=== PATIENT | female | born 1950 | race Two or more races ===

== ENCOUNTER 2024-12-21 11:52 | Inpatient (IN) | payer OTHER ==
[~2024-12-21] VITALS: Ht 154.9 cm; Wt 93.5 kg
[2024-12-21] VITALS (13 sets, daily range): BP systolic 93–134; BP diastolic 31–59; PULSE 101–119; RESP 10–29; TEMP 98; O2SAT 80–100
[~2024-12-21 11:52] MED LIST: ALBUAER3 IN; AMLO1TAB22 PO; ATOR20TA PO; CARB25TA79 PO; DONE1TAB88 PO; GABA-1250 PO; GLIM4TAB42 PO; HYDR25TA5 GT; LEVO75TA6 PO; OMEP-448 PO; PRIM50TA5 PO
[2024-12-21] MEDS ORDERED: KETAMINE 50mg/ML 1ml syringe ONE (12:04)
[2024-12-21] MEDS ORDERED: PROPOFOL 10 MG/ML 20 ML IV ONE (12:04)
[2024-12-21] MEDS ORDERED: LIDOCAINE 1% INJ PF 5ML AMP ONE (12:04)
[2024-12-21] MEDS ORDERED: ONDANSETRON HCL 4 MG/2 ML VIAL ONE (12:04)
[2024-12-21] MEDS ORDERED: HYDROmorphone HCL 2 MG/ML VL/or syr ONE (12:04)
[2024-12-21] MEDS ORDERED: MIDAZOLAM HCL 2MG/2ML 2ml VIAL (1mg/ml) ONE (12:04)
[2024-12-21] MEDS ORDERED: fentaNYL CITRATE 5 ML ONE (12:04)
[2024-12-21] MEDS ORDERED: ROCURONIUM 10MG/ML 10ML VIAL IV ONE (12:04)
[2024-12-21] MEDS ORDERED: fentaNYL CITRATE 100 MCG/2 ML VL ONE ×2 (12:04→16:48)
[2024-12-21] MEDS ORDERED: DexAMETHasone SOD PHOS 10MG/1ML VIAL INJ ONE (12:04)
[2024-12-21] MEDS: ceFAZolin 2 GM/D5W50ml 50 ML IV ONE (12:30)
[2024-12-21] MEDS: levoFLOXacin 500MG 100 ML IV ONE (14:17)
[2024-12-21] MEDS: TRANEXAMIC ACID 20 ML ONE (14:20)
[2024-12-21 14:26] LABS: Base Excess 7.6 mmol/L (-2.0-3.0)
--- NOTE | 2024-12-21 14:43 | DVH ---
CHEST RADIOGRAPH Indication: SURGERY Technique: Single frontal view of the chest was obtained COMPARISON: None FINDINGS: Lines and Tubes: None Lungs: Clear Pleura: No effusion. No pneumothorax. Cardiomediastinal contours: Unremarkable Bones: Unremarkable IMPRESSION: No acute disease.
[2024-12-21] MEDS ORDERED: ePHEDrine SULFATE 50 MG/ML AMP ONE (15:09)
[2024-12-21] MEDS ORDERED: MORPHINE SULFATE INJ 2 MG/ml SYRG IV PRN (15:45)
[2024-12-21] MEDS ORDERED: NITROGLYCERIN 0.4 MG SL TAB SL PRN (15:45)
[2024-12-21] MEDS ORDERED: ONDANSETRON HCL 4 MG/2 ML VIAL IV PRN (15:45)
[2024-12-21] MEDS: D5W/SOD CHLO 0.9% 1,000 ML IV SCH (15:45)
[2024-12-21] MEDS ORDERED: ACETAMINOPHEN 325 MG TAB PO PRN (15:45)
[2024-12-21] MEDS: LIDOCAINE W/ EPINEPHRINE 1% 20ML VIAL ONE (16:10)
--- NOTE | 2024-12-21 17:28 | DVHOP2 ---
Operative Report - 2 Report Details Date: 12/21/24 Preop Diagnosis: lumbar spondylolisthesis and spinal stenosis causing incapacitating low back pain and neurogenic claudication Postop Diagnosis: same as pre op Surgeon: Vinicius Jessica MD Customer Counter Associate: Tamy Ames NP Anesthesiologist: Arlen Anesthesia: General Consent: The patient was informed of the risks and benefits of the procedure. These include but are not limited to complications of anesthesia, postoperative infection, incomplete relief of symptoms, recurrence of symptoms, damage to blood vessels, nerves and tendons, deep venous thrombosis, pulmonary embolism and possible need for repeat surgery in the future. Name of Procedure Performed see detailed note Procedure Details Procedure Details: Pre-op Diagnosis: Lumbar Degenerative Disk Disease and Lumbar Spinal Stenosis with L4/5 and L5/S1 spondylolisthesis causing Incapacitating back pain, radiculopathy and progressive neurologic deficit Post-op Diagnosis: Lumbar Degenerative Disk Disease and Lumbar Spinal Stenosis with L4/5 and L5/S1 spondylolisthesis causing Incapacitating back pain, radiculopathy and progressive neurologic deficit Procedure: Lumbar 5 laminectomy with Lumbar 5 foraminotomies and facetectomies to decompress central canal and Lumbar 5 nerve roots Lumbar 4 laminectomy with Lumbar 4 foraminotomies and facetectomies to decompress central canal and Lumbar 4 nerve roots Bilateral Sacral 1 Laminotomies/Foraminotomies/Facetectomies to decompress the central canal and Bilateral Sacral 1 nerve Roots Lumbar 4 to sacral 1 posterior spinal inter transverse fusion with bone graft Lumbar 4 to sacral 1 posterior spinal instrumentation with pedicle screws Local Bone Autograft For Fusion Allograft Bone to augment Fusion Use of Demineralized Bone Matrix to Augment Fusion Microscope For Microdissection Surgeon: Vinicius Jessica MD Assist: ROBERTH Perez Anesthesia: General Fluids and EBL: See anesthesia note Patient was seen in the Pre Anesthesia Care Unit (PACU) and the operative site was initialed by me. All questions were answered to the patients satisfaction and chart reviewed. The patient was taken to the operative room where pre- operative antibiotics were given 30 minutes prior to incision. General anesthesia was induced and neuro-monitoring leads placed. Kirkpatrick catheter was placed. The patient was turned prone onto the [facility] spinal table. While positioning, I made sure that the belly was free to allow proper expansion of the lungs. The hips were extended and all bony prominences padded. The shoulders were abducted 80 degree and the elbows flexed 100 degrees with no tension on the brachial plexus. I check the foot arterial pulses and they were palpable. The patient was prepped and draped and time out was taken at this time per usual protocol. At this time, the C-arm fluoroscope was brought in and was used to gray the incision borders proximally and distally. Using a Number 10 Blade, an incision was made extending it proximally and distally per C arm gray from the posterior spinous process of lumbar 4 to sacral 1 , down to the lumbo- dorsal fascia. All bleeding was controlled with electrocautery. Self-retaining retractors were placed. Electrocautery was then used to take down the lumbo- dorsal fascia, to free the muscle off the bone bilaterally. A Azul retractor was placed over the posterior spinous process proximally and a lateral C-arm fl uoroscope image was taken to insure we were at the correct level. Next, using bovie electro cautery, The deep fascia laterally to the facet joints was removed to expose the transverse processes of lumbar 4,5 and sacral 1 while taking care to avoid injuring the facet capsule at the proximal end of the incision. Next, the microscope was bought in for visualization and using a Luxell rongeur, the posterior spinous process of lumbar 4,5 and sacral 1 were removed and the bone was saved for use as local autograft. I used alternating Kerison 2 mm and 3 mm rongeurs to perform central laminectomies lumbar 5 and 4 and bilateral laminotomies/foramintomies of sacral. to decompress the central canal. Next using alternating Kerison 2mm and 3 mm rongeurs, the superior articular facets of lumbar 4,5, and sacral 1 were removed bilaterally to decompress the lateral recess (facetectomies) and then extended proximally to decompress the foramen bilaterally (foraminotomies). I used a ball tipped nerve probed to insure that the respective nerve roots were able to be mobilized 5mm in each direction were unimpeded in the lateral recess and foramen. Next I carefully inspected the dura to make sure no durotomy was visible and it was not. I covered the exposed dura with gelfoam soaked in thrombin and the microscope was wheeled away from the operative filed. The C-arm fluoroscope was brought in and perfect AP views of the lumbar 4, 5 and sacral 1 pedicles were obtained. I placed bilateral pedicle screws at these levels by: using a Lenke awl to make a airline pilot/first officer hole, then a ball tip robe to make sure there was no pedicle breach, then a tap to prepare the track and a 6.5 mm diameter and 45mm for lumbar 4, 5 and for sacral 1 a 35mm length pedicle screw was placed bilaterally. This step to place bilateral pedicle screws was repeated up to the lumbar 4, 5 and sacral 1 level. Next, the c-arm fluoroscope took an AP and lateral x-ray to ensure proper placement of the pedicle screws. Next, the neuro-stimulation probe was placed over the tip of each screw and each screw stimulated only after a current greater than 10 mA was delivered to the screw. Next , I took a Midas Ravindra Drill to decorticate the transverse process which were exposed and local bone graft, Bacterin allograft bone substitute and Demineralized bone matrix were placed along the inter transverse process intervals bilaterally (the fusion bed). Next a curved melinda sized to fit the pedicle screw interval was placed and secured to each pedicle screw using set screws, The set screws were tightened using a torque screwdriver (set to 10 N*M torque) to secure the melinda to the pedicle screws bilaterally. Final AP and lateral C arm fluoroscopic films were taken at this time. Next a 10 [place] diameter Hemovac drain was laced deep to the lumbo- dorsal fascia. The lumbo-dorsal fascia was closed with interrupted 0-Vicry sutures. The subcutaneous tissue was closed with interrupted 2-0 Vicryl sutures. The skin was closed with 2-0 running nylon subcuticular suture. Sterile dressings were place. The pt. was turned supine onto the stretcher, extubated and taken to the recovery room in stable condition. CPT code: [id number] Condition Stable Disposition Still a Patient VINICIUS JESSICA MD December 21, 2024 17:28
--- NOTE | 2024-12-21 17:56 | DVHHP2 ---
Admitting Diagnosis: LUMBAR SPINAL STENOSIS WITH SPONDYLOLISTHESIS AT L4/5 AND L5/S1 History of Present Illness History Source: Patient, Family Home Meds Reported Medications Albuterol Sulfate (VENTOLIN MDI) 90 Mcg Ih, 90 MCG IN PRN, INH 12/17/24 Gabapentin (Gabapentin) 300 Mg Cap, 300 MG PO BID, CAP 12/17/24 Donepezil Hydrochloride (DONEPEZIL HCL) Unknown Strength Tab, PO, TAB 12/17/24 Atorvastatin Calcium (Lipitor) 20 Mg Tab, 20 MG PO HS, TAB 12/17/24 Glimepiride (Glimepiride) 4 Mg Tab, 4 MG PO, TAB 12/17/24 Hctz (Hydrochlorothiazide) 25 Mg Tab, 25 MG GT DAILY, TAB 12/17/24 Levothyroxine Sodium (Levothyroxine Sodium) 75 Mcg Tab, 75 MCG PO QAM, TAB 12/17/24 Primidone (MYSOLINE TABLET) 50 Mg Tb, 50 MG PO DAILY, TAB 12/17/24 Carbidopa-Levodopa (Carbidopa/Levodopa Odt 25-100 mg) 1 Tab Tab, 1 TAB PO, TAB 12/17/24 Amlodipine Besylate (Amlodipine Besylate) 5 Mg Tab, 5 MG PO DAILY, TAB 12/17/24 Omeprazole (Omeprazole Dr) 40 Mg Cap, 40 MG PO DAILY, CAP 12/17/24 Timing/Duration of Back Pain: Getting worse Quality of Back Pain: Aching, Burning, Cramping Back Pain Location: Lumbar spine Back Pain Radiation: Lower legs Method of Injury/Prior Factors: Unknown Modifying Factors for Back Junie: Movement Associated Symptoms of Back Pa: Muscle spasms, Tingling in legs, Tingling in feet, Sensory loss, Motor loss Review of Systems Constitutional: No symptom reported Ears, Nose, & Throat: No symptom reported Eyes: No symptom reported Pulmonary/Respiratory: No symptom reported Cardiovascular: No symptom reported Gastrointestinal: No symptom reported Genitourinary: No symptom reported Musculoskeletal: No symptom reported, Leg pain, Foot pain, Muscle pain, Muscle stiffness Skin: No symptom reported Psychiatric: No symptom reported Endocrine: No symptom reported Hemotologic/Lymphatic: No symptom reported H&P Exam Vital Signs Vital Signs Date Time Temp Pulse Resp B/P (MAP) Pulse Ox O2 Delivery O2 Flow Rate FiO2 12/21/24 12:25 97.8 72 18 126/64 84 97 97.8 General Appeara: Well developed, Well nourished, Normal Appearance Head Exam: Normal inspection Neck Exam: Normal inspection Eye Exam: bilateral eye Normal inspection, bilateral eye PERRL, bilateral eye EOMI Ear Exam: bilateral ear Auricle normal, bilateral ear Canal normal, bilateral ear TM normal Nasal Exam: Normal inspection Mouth: Normal Inspection Pulmonary/Respiratory: Normal inspection, Normal breath sounds, Chest non- tender, Lungs clear Cardiovascular/Chest: Edema Abdominal Exam: Normal bowel sounds, Soft, No tenderness, No hepatospenomegaly, No masses Rectal Exam: Deferred Back Exam: Decreased range of motion, Muscle spasm Pelvic Exam: Not done Male Genital Exam: Not done Elbow/Forearm Exam: Normal inspection, Non-tender, Normal ROM Wrist Exam: Normal inspection, Non-tender, Normal ROM Hand Exam: Normal inspection, Non-tender, Normal ROM Hip exam: Normal inspection, Non-tender, Normal range of motion Legs: bilateral leg non-tender, bilateral leg normal inspection, bilateral leg normal range of motion, bilateral leg no evidence of injury Knees: bilateral knee non-tender, bilateral knee normal inspection, bilateral knee normal range of motion, bilateral knee no evidence of injury Ankle Exam: bilateral ankle Normal inspection, bilateral ankle Non-tender, bilateral ankle Normal range of motion, bilateral ankle No evidence of injury Foot: bilateral foot non-tender, bilateral foot normal inspection, bilateral foot normal range of motion, bilateral foot no evidence of injury Labs/Xrays Labs Test 12/21/24 14:19 12/21/24 12:58 Range/Units Blood Gas Specimen Type Arterial Blood Gas Sample Site Right radial Blood Gas Patient Temperature 37.0 Arterial Blood Date Drawn [id number] Arterial Blood pH 7.507 H 7.350-7.450 Arterial Blood Partial Pressure CO2 40.4 32.0-45.0 mmHg Arterial Blood Partial Pressure O2 65.7 L 83.0-108.0 mmHg Arterial Blood HCO3 31.3 H 21.0-28.0 mmol/L Arterial Blood Oxygen Saturation 93.8 L 94.0-98.0 % Arterial Blood Base Excess 7.6 H -2.0-3.0 mmol/L Arterial Blood Oxyhemoglobin 93.0 L 94.0-98.0 % Arterial Blood Carboxyhemoglobin 0.6 0.5-1.5 % Arterial Blood Methemoglobin 0.3 0.0-1.5 % Natan Test Yes Blood Gas Total Hemoglobin 11.40 L 12.0-16.0 g/dL Blood Gas Modality Room air FiO2 % 21.0 POC Glucose 116 H 70-106 mg/dl Assessment/Plan Primary Diagnosis lumbar randy stenosis with spondylolisthesis at L4/5 and L5/S1 causing severe neurogenic claudication 2' Diagnosis/Co-morbidities admit for elective spine surgery Plan discussed with: Patient YONY TAYLOR MD December 21, 2024 17:56
[2024-12-21] MEDS ORDERED: SUGAMMADEX 200mg/2ml Vial (100MG/ML) IV ONE (18:02)
[2024-12-21] MEDS: ACETAMINOPHEN IV 100 ML IV ONE (18:27)
[2024-12-21] MEDS: ACETAMINOPHEN IV 1000 MG/100ML (10MG/ML) IV PRN (18:30)
[2024-12-21] MEDS: ONDANSETRON HCL 4 MG/2 ML VIAL IV ONE (18:30)
[2024-12-21 19:01] LABS: Base Excess 1.3 mmol/L (-2.0-3.0)
--- NOTE | 2024-12-21 19:16 | DVH ---
C-ARM FLUOROSCOPY: PROCEDURE: Spinal decompression FLUOROSCOPY TIME: 11.5 seconds DAP: 44.8 mgy FINDINGS: Spot intraoperative C arm radiographs demonstrating spinal decompression. IMPRESSION: Please refer to surgical report for detailed findings.
[2024-12-21] MEDS: HYDROmorphone HCL 2 MG/ML VL/or syr IV PRN (19:38)
[2024-12-21] MEDS: HYDROmorphone HCL 2 MG/ML VL/or syr ONE (19:57)
[2024-12-21 21:34] LABS: Base Excess -1.4 mmol/L (-2.0-3.0)
[2024-12-21] MEDS: DOCUSATE SOD 100 MG CAP PO SCH (22:00)
[2024-12-21] MEDS: CYCLOBENZAPRINE HCL 10 MG TAB PO SCH (22:00)
[2024-12-21] MEDS: ceFAZolin 1GM/50ML 50 ML IV SCH (22:35)
[2024-12-22] VITALS (105 sets, daily range): BP systolic 49–232; BP diastolic 31–226; PULSE 78–136; RESP 9–39; TEMP 97.8–99.6; O2SAT 93–100
[2024-12-22 00:17] LABS: Base Excess -3.1 mmol/L (-2.0-3.0)
[2024-12-22] MEDS: IPRATROPIUM BROM 0.5 MG/2.5ML INH SOL NEB SCH (00:25)
[2024-12-22] MEDS: MORPHINE SULFATE INJ 2 MG/ml SYRG IV PRN (00:37)
--- NOTE | 2024-12-22 01:05 | DVHINCON2 ---
JASE TOVAR [facility] 12/22/24 0105: Date of service: December 22, [address] Jessica Reason for Consultation Medical Management History of Present Illness Mrs. Ria Schaffer is a 74 yo female with known history of dementia, COPD, on 2L NC supplemental home 0xygen, DM who presents for an elective surgical lumbar sinal stenosis with spondylolisthesis at L4/5 and L5/S1 causing severe ne urogenic claudication by Dr. Jessica. Patient was admitted to [facility] consult for medical management. Patient is on BIPAP. Past Medical History Dementia, COPD, DM Past Surgical History Hysterectomy, Hernia Repair, cholecystectomy, tonsillectomy Family History none contributory Social History none contributory Allergies: Coded Allergies: NO KNOWN ALLERGIES (Unverified , 09/29/11) Home Meds Reported Medications Albuterol Sulfate (VENTOLIN MDI) 90 Mcg Ih, 90 MCG IN PRN, INH 12/17/24 Gabapentin (Gabapentin) 300 Mg Cap, 300 MG PO BID, CAP 12/17/24 Donepezil Hydrochloride (DONEPEZIL HCL) Unknown Strength Tab, PO, TAB 12/17/24 Atorvastatin Calcium (Lipitor) 20 Mg Tab, 20 MG PO HS, TAB 12/17/24 Glimepiride (Glimepiride) 4 Mg Tab, 4 MG PO, TAB 12/17/24 Hctz (Hydrochlorothiazide) 25 Mg Tab, 25 MG GT DAILY, TAB 12/17/24 Levothyroxine Sodium (Levothyroxine Sodium) 75 Mcg Tab, 75 MCG PO QAM, TAB 12/17/24 Primidone (MYSOLINE TABLET) 50 Mg Tb, 50 MG PO DAILY, TAB 12/17/24 Carbidopa-Levodopa (Carbidopa/Levodopa Odt 25-100 mg) 1 Tab Tab, 1 TAB PO, TAB 12/17/24 Amlodipine Besylate (Amlodipine Besylate) 5 Mg Tab, 5 MG PO DAILY, TAB 12/17/24 Omeprazole (Omeprazole Dr) 40 Mg Cap, 40 MG PO DAILY, CAP 12/17/24 Current Medications Current Medications Medications (Trade) Dose Ordered Sig/Mejia Route PRN Reason Start Time Stop Time Status Last Admin Dextrose/Sodium Chloride 1,000 ml @ 100 mls/hr Q10H IV 12/21/24 15:45 12/21/24 22:27 Ondansetron HCl (Zofran) 4 mg Q4HP PRN IV NAUSEA / VOMITING 12/21/24 15:45 Acetaminophen (Tylenol Tablet) 650 mg Q6HP PRN PO MILD PAIN (1-3 PAIN SCALE) 12/21/24 15:45 Acetaminophen/ Hydrocodone Bitart ([place] 10/325MG Tab) 1 tab Q6HP PRN PO MODERATE PAIN (4-6 PAIN SCALE) 12/21/24 15:45 Morphine Sulfate 1 mg Q4HP PRN IV SEVERE PAIN (7-10 PAIN SCALE) 12/21/24 15:45 12/22/24 00:37 Cyclobenzaprine HCl (Flexeril Tablet) 10 mg TID PO 12/21/24 22:00 Docusate Sodium (Colace Capsule) 100 mg BID PO 12/21/24 22:00 Cefazolin Sodium 50 ml @ 100 mls/hr Q8HR IV 12/21/24 22:00 12/23/24 14:29 12/21/24 22:35 Nitroglycerin (Ntrostat Sublingual) 0.4 mg Q5MINP PRN SL FOR CHEST PAIN 12/21/24 15:45 Morphine Sulfate 2 mg Q30M PRN IV FOR CHEST PAIN 12/21/24 15:45 Acetaminophen (Ofirmev) 1,000 mg [id number] PRN IV PAIN SCALE 1-3 OR TEMP>100.4 12/21/24 18:30 12/21/24 19:53 DC 12/21/24 18:30 Hydromorphone HCl (Dilaudid Injection) 0.25 mg [id number] PRN IV PAIN SCALE 7 THRU 10 12/21/24 19:30 12/21/24 20:20 Ipratropium [place] (Atrovent Medneb) 0.5 mg Q6HR NEB 12/22/24 00:00 12/22/24 00:25 Review of Systems unable to do ROS patient dementia Vital Signs Vital Signs Date Time Temp Pulse Resp B/P (MAP) Pulse Ox O2 Delivery O2 Flow Rate FiO2 12/22/24 00:37 111 28 139/53 12/22/24 00:30 98 Facial BiPAP Mask 40 12/22/24 00:00 97.8 97.8 12/21/24 17:56 9.0 Physical Exam HEENT pupils are reactive Neck is supple CV is S1-S2 sinus tachycardia Respiratory diminished breath sounds bases, on BIPAP fi02 40% GI positive no edema [employer]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9 L 94.0-98.0 % Arterial Blood Carboxyhemoglobin 0.1 L 0.5-1.5 % Arterial Blood Methemoglobin 0.7 0.0-1.5 % Natan Test N/a Blood Gas Total Hemoglobin 9.60 L 12.0-16.0 g/dL Blood Gas Modality Mask - bipap FiO2 % 40.0 Blood Gas EPAP 5 Blood Gas IPAP 16 Magnesium Level 1.8 1.6-2.6 mg/dL Blood Gas Critical Value Read Back Yes Blood Gas Notified Whom Do shaan pan Blood Gas Notified Time [id number] Blood Gas Notified By Rt kwesi mata Blood Gas Liter Flow 8.00 Test 12/21/24 12:58 Range/Units POC Glucose 116 H 70-106 mg/dl Assessment This is a 74 yo female with known history of dementia, COPD with supplemental home oxygen use of 2L NC, DM, who was admitted by spinal surgeon for lumbar spinal stenosis with spondylolisthesis at L4/5 and L5/S1 causing severe neurogenic claudication, elective surgery of spinal decompression and fusion. Patient was admitted to [facility]. Patient with hypercapnia repeat ABG, on Bipap , Pulmonology consultation. Problems(with codes): (1) Spinal stenosis Plan/Recommendation Monitor CBC, BMP, Analgesics as needed. IV fluids , empiric IV abx. DVT ppx SCD's , GI ppx rest of hospital course per admitting Provider and other consults. Plan discussed with: Other MODESTO DELANEY MD 12/22/24 1358: Allergies: Coded Allergies: NO KNOWN ALLERGIES (Unverified , 09/29/11) Home Meds Reported Medications Albuterol Sulfate (VENTOLIN MDI) 90 Mcg Ih, 90 MCG IN PRN, INH 12/17/24 Gabapentin (Gabapentin) 300 Mg Cap, 300 MG PO BID, CAP 12/17/24 Donepezil Hydrochloride (DONEPEZIL HCL) Unknown Strength Tab, PO, TAB 12/17/24 Atorvastatin Calcium (Lipitor) 20 Mg Tab, 20 MG PO HS, TAB 12/17/24 Glimepiride (Glimepiride) 4 Mg Tab, 4 MG PO, TAB 12/17/24 Hctz (Hydrochlorothiazide) 25 Mg Tab, 25 MG GT DAILY, TAB 12/17/24 Levothyroxine Sodium (Levothyroxine Sodium) 75 Mcg Tab, 75 MCG PO QAM, TAB 12/17/24 Primidone (MYSOLINE TABLET) 50 Mg Tb, 50 MG PO DAILY, TAB 12/17/24 Carbidopa-Levodopa (Carbidopa/Levodopa Odt 25-100 mg) 1 Tab Tab, 1 TAB PO, TAB 12/17/24 Amlodipine Besylate (Amlodipine Besylate) 5 Mg Tab, 5 MG PO DAILY, TAB 12/17/24 Omeprazole (Omeprazole Dr) 40 Mg Cap, 40 MG PO DAILY, CAP 12/17/24 Additional Comments Additional Comments Additional Comments 74-year-old female with a known history of chronic respiratory failure on home O2 at 2 L, COPD, hypothyroidism, Parkinson's disease presented to the hospital for elective surgery. Patient is currently off of BiPAP. 1. Acute hypoxic respiratory failure currently off of BiPAP, on baseline at 2 L by continuous nasal cannula 2. Lumbar spine stenosis status post L4-5 S1 surgery postop day one 3. Parkinson's disease 4. Chronic respiratory failure on home O2 5. Hypertension 6. Diabetes mellitus type 2 7. GERD 8. Morbid obesity class I -O2 supplementation, med nebs, DVT GI prophylaxis -repeat ABG, downgraded to telemetry. JASE TOVAR December 22, 2024 01:05 MODESTO DELANEY MD December 22, 2024 13:58
[2024-12-22 04:39] LABS: Urine Bacteria None Seen /hpf (None Seen)
[2024-12-22 05:00] LABS: Urine Blood Negative /uL (Negative); Urine Clarity Clear (Clear); Urine Color Light-Yellow (Yellow); Urine Protein, UAD Negative (Negative); Urine Specific Gravity 1.013 (1.001-1.035); Urine Squamous Epithelial Cell None Seen /hpf (<5); Urine Urobilinogen Normal (Negative); Urine WBC 2 /HPF (0-5)
[2024-12-22 05:05] LABS: Basophils # (auto) 0 10 ^3/uL (0-0.2); Basophils % (auto) 0.1 % (0.0-2.0); Eosinophils # (auto) 0 10 ^3/uL (0-0.8); Hematocrit 28.4 % (36.0-46.0); Lymphocytes # (auto) 0.5 10 ^3/uL (0.4-5.4); Red Cell Distribution Width 14.8 % (11.8-14.3)
[2024-12-22 05:09] LABS: Hemoglobin 8.8 g/dL (12.2-16.2); Lymphocytes % (auto) 4.4 % (10.0-50.0); Mean Corpuscular Hemoglobin 25.7 pg (28.0-32.0); Mean Corpuscular Hgb Conc. 31.1 g/dL (32.0-36.0); Mean Corpuscular Volume 82.7 fL (80.0-100.0); Monocytes # (auto) 1.1 10 ^3/uL (0-1.3); Neutrophils # (auto) 9.5 10 ^3/uL (1.6-8.6); Neutrophils % (auto) 85.5 % (37.0-80.0); Platelet Count (auto) 260 10^3/uL (140-450); Red Blood Cells 3.44 10^6/uL (4.0-5.20); White Blood Cell 11.1 10^3/uL (4.4-10.8)
[2024-12-22 05:09] LABS: Anion Gap 10 (5-15); Carbon Dioxide 30 mmol/L (20-31); Chloride 100 mmol/L (98-107); Potassium 4.3 mmol/L (3.5-5.1); Sodium 140 mmol/L (136-145)
[2024-12-22 05:15] LABS: BUN/Creatinine Ratio 14.9 (10.0-20.0); Blood Urea Nitrogen 14 mg/dL (9-23); INR 1.06 (0.9-1.15); Prothrombin Time 11.2 sec (9.3-11.8)
[2024-12-22 05:52] LABS: Glucose 206 mg/dL (74-106)
[2024-12-22 08:07] LABS: Base Excess 2.1 mmol/L (-2.0-3.0)
--- NOTE | 2024-12-22 08:43 | DVH ---
EXAM: XR Chest, 1 View CLINICAL INDICATION: ABNORMAL BLOOD GAS TECHNIQUE: Frontal view of the chest. COMPARISON: XY CHEST XRAY 1 VIEW on DOS: 12/21/24 FINDINGS: LUNGS AND PLEURAL SPACES: See below. HEART: Cardiomegaly with mild congestion. MEDIASTINUM: Unremarkable. Normal mediastinal contour. BONES/JOINTS: Unremarkable. No acute fracture. OTHER FINDINGS: . IMPRESSION: Cardiomegaly with mild congestion.
[2024-12-22] MEDS: FAMOTIDINE (10MG/ML) 2ML VL IV SCH (10:42)
[2024-12-22] MEDS: HYDROcodone-ACET 10/325MG TAB PO PRN (10:43)
--- NOTE | 2024-12-22 12:15 | POSTOP ---
Post-Operative Note Post-Operative Note Preop Diagnosis Lumbar Degenerative Disk Disease and Lumbar Spinal Stenosis with L4/5 and L5/S1 spondylolisthesis causing Incapacitating back pain, radiculopathy and pro gressive neurologic deficit Postop Diagnosis: same as pre op Operation performed Lumbar 5 laminectomy with Lumbar 5 foraminotomies and facetectomies to decompress central canal and Lumbar 5 nerve roots Lumbar 4 laminectomy with Lumbar 4 foraminotomies and facetectomies to decompress central canal and Lumbar 4 nerve roots Bilateral Sacral 1 Laminotomies/Foraminotomies/Facetectomies to decompress the central canal and Bilateral Sacral 1 nerve Roots Lumbar 4 to sacral 1 posterior spinal inter transverse fusion with bone graft Lumbar 4 to sacral 1 posterior spinal instrumentation with pedicle screws Specimen None Anesthesia: General Anesthesiologist: Dr. Pearson/Dr. Mckinley Blood Loss(fluid mgmt) See anesthesia record Tourniquet Time None Surgeon Dr. Vinicius larson Senior Network Administrator Tamy Lopez, HEAD SCREEN WORKER Implant See op note Complications & Mgmt None Additional Remarks POD # 1 Drained 150 ml of Sanguinous discharge at deep Hemovac drain and drained 50 ml sanguineous output at superficial Hemovac drain, will keep drains in as patient is not getting up frequently yet Patient had restless night per report, however the patient has improved greatly throughout the day Patient has been Hemodynamically stable Patient is appropriate to downgrade to telemetry unit Patient currently awake, alert no apparent distress noted Patient is handling secretions, respirations are equal and unlabored, voice is strong Skin is pink warm and dry No complaints of abdominal pain no distention noted Patient passing gas Patient tolerating meal Sandee dressing is functioning and seal is intact, power source is operational Drain output has been recorded, drains are intact x2 we will keep drains in and re-evaluate tomorrow morning Patient verbalized that she understands she is having postoperative pain and the pain that she had prior to surgery is resolved slightly Patient is progressing well -Disposition: -Pending -Discharge RX: Pending -Follow up appointment: with Dr Larson on were scheduled follow up appointment date and time [id number] [facility] [address] Av[address] [place] [id number] -Pain: - IV pain meds post op day 1, with PO supplementation, goal is to progress weaning off IV medications and control pain with PO only. morphine 1mg q 4 hours (PAIN 7-10) - P.O. analgesics:Tylenol 650MG (PAIN 1-3) Kirvin 10/325 mg (PAIN 4-6) - Muscle relaxers scheduled administration. This is a beneficial medications for the incisional pain as it is mostly related to muscle spasms. Flexeril 10 mg TID - Cepacol throat lozenges as needed for sore throat -Antibiotics Operative recommendations: -Postoperative dose:-Post operative antibiotics cefazolin 1 g IV piggyback every 8 hours x 48 hours total of 6 doses -DVT PPX: -Hold all chemical DVT/ blood thinners for 14 days postoperatively -use mechanical DVT PPX such as SCD's, ambulation -Activity: -Pending PT evaluation and patients progression -Sit at side of bed for meals -Goal: Ambulate independently and safely (may use assistive devices if needed) -Medical Therapy goals: -Afebrile- Patient may develop a expected post operative fever by day 2-3, this may not be accompanied with a elevation in WBC. if fever develops: Acetaminophen for fever. Albuterol nebulizer Tx every 12 hours for 24 hours to facilitate adequate lung expansion and prevent development of atelectasis. -Euglycemic: bloods sugars under 130mmol/L for optimal healing -Normotensive: Avoid events of hypertension. This helps to keep post operative healing intact and avoids destabilization of beneficial hemostatic coagulation. -Lumbar: -If patient is comfortable encouraged the patient to lay on their side to facilitate wound healing -Drains: -Hemovac drains: These will be to full compression unless otherwise ordered. Please record and document output AND characteristic of fluid present independently EVERY 6 hours more often as needed. if there in no output indicate this by documenting 0ml. If output is greater than 100 ml in one hour of julio blood call provider. These drains will be removed once the drainage is at a acceptable level (generally less than 100ml in 24 hours) -Sandee dressing: This will stay in place and will be removed at the patients follow up visit. Nursing is to assess the seal and power source. The seal should be intact and the power source should have a green flashing light indicating it is functioning well. Batteries can last up to 14 days. If a leak develops the dressing edges can be reinforced with a Tegaderm dressing to reestablish intact seal. The Sandee dressing is NOT a wound vac. This does not get changed, it does not need home health management. -Record output independently, drain 1. Is a deep drain and drain 2. Is a superficial drain. Wound drainage is described by type, color, amount, and odor. Drainage can be 1 Serous: Clear and thin, may be present in healing healthy wound. 2 Serosanguineous containing blood may also be present and healthy healing wound 3. Sanguinous primarily blood 4. Purulent this is thick, white, and pus like. It may be indicated to give of a infection and should constitute a call to the provider immediately with the plan that the sample should be cultured. -Kirkpatrick: discontinued in OR -Dressings Take care not to disrupt the SANDEE dressing seal. If there is a break in the seal it can be trouble shot with a Tegaderm dressing. -Dressing to Hemovac drains may be changed once the drains have been removed by the provider. -Bowel management: -Colace 100mg bid -Diet: -Clear liquid diet and advance as patient tolerates within dietary limitations ( example: diabetic, Cardiac) -Incentive Spirometer: -10 x hour while awake, RN please educate and observe repeat demonstration, have IS at bedside POD #1 -X-rays: - none indicated at this time -Consults: -Physical Therapy evaluation, treatment recommendations, and discharge recommendations Call with questions Silva Lopez [facility]- Orthopaedic Spine Surgery nurse practitioner For Dr Wolf Larson Patient was examined, chart reviewed, labs evaluated, and diagnostic studies and findings analyzed. Case was discussed with Dr. Vinicius Larson who formulated the plan of care. This medical document was created using an electronic medical record system with [employer] dictation system. Although this document has been carefully reviewed, there might still be some phonetic and typographical errors. These areas are purely typographical due to imperfections of the software programs, and do not reflect any compromise in the patient's medical care. Date 12/22/24 Time 12:10 TAMY LOPEZ NP December 22, 2024 12:15
--- NOTE | 2024-12-22 12:31 | DVHINCON2 ---
Date of service: December 21, [address] Jessica Reason for Consultation copd History of Present Illness HPI The patient is a 74-year-old lady with multiple medical problems including morbid obesity diabetes high blood pressure and COPD on home oxygen who required spinal surgery. Postoperatively the patient's hypercapnic and lethargic have not been extubated in the recovery room. ABG obtained be 7.27 pCO2 64 P is 80. Patient started on BiPAP initial settings 07/10. Chest x-ray reveals no acute abnormalities. Patient admitted to the stepdown for further Management Home Meds Reported Medications Albuterol Sulfate (VENTOLIN MDI) 90 Mcg Ih, 90 MCG IN PRN, INH 12/17/24 Gabapentin (Gabapentin) 300 Mg Cap, 300 MG PO BID, CAP 12/17/24 Donepezil Hydrochloride (DONEPEZIL HCL) Unknown Strength Tab, PO, TAB 12/17/24 Atorvastatin Calcium (Lipitor) 20 Mg Tab, 20 MG PO HS, TAB 12/17/24 Glimepiride (Glimepiride) 4 Mg Tab, 4 MG PO, TAB 12/17/24 Hctz (Hydrochlorothiazide) 25 Mg Tab, 25 MG GT DAILY, TAB 12/17/24 Levothyroxine Sodium (Levothyroxine Sodium) 75 Mcg Tab, 75 MCG PO QAM, TAB 12/17/24 Primidone (MYSOLINE TABLET) 50 Mg Tb, 50 MG PO DAILY, TAB 12/17/24 Carbidopa-Levodopa (Carbidopa/Levodopa Odt 25-100 mg) 1 Tab Tab, 1 TAB PO, TAB 12/17/24 Amlodipine Besylate (Amlodipine Besylate) 5 Mg Tab, 5 MG PO DAILY, TAB 12/17/24 Omeprazole (Omeprazole Dr) 40 Mg Cap, 40 MG PO DAILY, CAP 12/17/24 Past Medical History Cardiac: HTN Pulmonary: COPD Central Nervous System: Nervous system GI: Constipation Hemotology/Oncology: Anemia NOS Hepatobiliary: Cirrhosis Psychiatric: Anxiety Musculoskeletal: Chronic low back pain Rheumotologic: Fibromyalgia ENT: Sinusitis Renal/: Acute renal failure Endocrine: Vit D deficiency Past Surgical History: No pertinent Hx Family History: No pertinent Hx Review of Systems Constitutional: Malaise, Weakness Ears, Nose, & Throat: No symptom reported Eyes: No symptom reported Pulmonary/Respiratory: Dyspnea, Cough Cardiovascular: No symptom reported Gastrointestinal: No symptom reported Genitourinary: No symptom reported Skin: No symptom reported Psychiatric: No symptom reported Endocrine: No symptom reported Hemotologic/Lymphatic: No symptom reported H&P Exam Vital Signs Vital Signs Date Time Temp Pulse Resp B/P (MAP) Pulse Ox O2 Delivery O2 Flow Rate FiO2 12/22/24 12:15 79 21 90/38 (55) 100 108/44 (65) 12/22/24 12:00 98.0 98.0 12/22/24 11:51 Nasal BiPAP Mask 35 12/22/24 10:00 6 General Appeara: Well developed, Well nourished, Normal Appearance Head Exam: Normal inspection Neck Exam: Normal inspection, Non-tender, Normal alignment Eye Exam: bilateral eye Normal inspection, bilateral eye PERRL, bilateral eye EOMI Ear Exam: bilateral ear Auricle normal, bilateral ear Canal normal Nasal Exam: Normal inspection Mouth: Normal Inspection Pulmonary/Respiratory: Normal inspection, Normal breath sounds, Chest non- tender Cardiovascular/Chest: Normal inspection Peripheral Pulses: 4+ carotid (R), 4+ carotid (L) Abdominal Exam: Normal bowel sounds, Soft Rectal Exam: Deferred Labs/Xrays Labs Test 12/22/24 07:46 12/22/24 04:39 12/22/24 04:20 12/22/24 01:43 Range/Units Blood Gas Specimen Type Arterial Blood Gas Sample Site Arterial line Blood Gas Patient Temperature 37.0 Arterial Blood Date Drawn [id number] Arterial Blood pH 7.324 L 7.350-7.450 Arterial Blood Partial Pressure CO2 56.3 H 32.0-45.0 mmHg Arterial Blood Partial Pressure O2 100.7 83.0-108.0 mmHg Arterial Blood HCO3 28.6 H 21.0-28.0 mmol/L Arterial Blood Oxygen Saturation 96.9 94.0-98.0 % Arterial Blood Base Excess 2.1 -2.0-3.0 mmol/L Arterial Blood Oxyhemoglobin 95.2 94.0-98.0 % Arterial Blood Carboxyhemoglobin 0.8 0.5-1.5 % Arterial Blood Methemoglobin 1.0 0.0-1.5 % Natan Test N/a Blood Gas Total Hemoglobin 8.30 L 12.0-16.0 g/dL Blood Gas Set Respiration Rate 12.0 Blood Gas Modality Mask - bipap FiO2 % 60.0 Blood Gas EPAP 5 Blood Gas IPAP 16 Prothrombin Time 11.2 9.3-11.8 sec Prothrombin Time INR 1.06 0.9-1.15 Sodium Level 140 136-145 mmol/L Potassium Level 4.3 3.5-5.1 mmol/L Chloride Level 100 98-107 mmol/L Carbon Dioxide Level 30 20-31 mmol/L Anion Gap 10 5-15 Blood Urea Nitrogen 14 9-23 mg/dL Creatinine 0.94 0.550-1.02 mg/dL Glomerular Filtration Rate Calc 63 >90 mL/min BUN/Creatinine Ratio 14.9 10.0-20.0 Serum Glucose 206 H 74-106 mg/dL Calcium Level 8.0 L 8.7-10.4 mg/dL Ammonia 44 H 11-32 umol/L Thyroid Stimulating Hormone (TSH) 0.13 L 0.55-4.78 uIU/mL Urine Color Light-yellow Yellow Urine Clarity Clear Clear Urine pH 7.0 5.0-9.0 Urine Specific [place] 1.013 1.001-1.035 Urine Protein Negative Negative Urine Ketones Negative Negative Urine Blood Negative Negative /uL Urine Nitrite Negative Negative Urine Bilirubin Negative Negative Urine Urobilinogen Normal Negative mg/dL Urine Leukocyte Esterase Negative Negative /uL Urine RBC 3 0 - 4 /hpf Urine Microscopic WBC 2 0-5 /HPF Urine Squamous Epithelial Cells None seen <5 /hpf Urine Bacteria None seen None Seen /hpf Urine Glucose Normal Normal mg/dL White Blood Count 11.1 H 4.4-10.8 10^3/uL Red Blood Count 3.44 L 4.0-5.20 10^6/uL Hemoglobin 8.8 L 12.2-16.2 g/dL Hematocrit 28.4 L 36.0-46.0 % Mean Corpuscular Volume 82.7 80.0-100.0 fL Mean Corpuscular Hemoglobin 25.7 L 28.0-32.0 pg Mean Corpuscular Hemoglobin Concent 31.1 L 32.0-36.0 g/dL Red Cell Distribution Width 14.8 H 11.8-14.3 % Platelet Count 260 140-450 10^3/uL Mean Platelet Volume 9.9 6.9-10.8 fL Neutrophils (%) (Auto) 85.5 H 37.0-80.0 % Lymphocytes (%) (Auto) 4.4 L 10.0-50.0 % Monocytes (%) (Auto) 10.0 0.0-12.0 % Eosinophils (%) (Auto) 0.0 0.0-7.0 % Basophils (%) (Auto) 0.1 0.0-2.0 % Neutrophils # (Auto) 9.5 H 1.6-8.6 10 ^3/uL Lymphocytes # (Auto) 0.5 0.4-5.4 10 ^3/uL Monocytes # (Auto) 1.1 0-1.3 10 ^3/uL Eosinophils # (Auto) 0 0-0.8 10 ^3/uL Basophils # (Auto) 0 0-0.2 10 ^3/uL Nucleated Red Blood Cells 0.0 % Test 12/21/24 23:58 12/21/24 20:50 12/21/24 18:10 12/21/24 12:58 Range/Units Magnesium Level 1.8 1.6-2.6 mg/dL Blood Gas Critical Value Read Back Yes Blood Gas Notified Whom Do shaan pan Blood Gas Notified Time [id number] Blood Gas Notified By Rt kwesi mata Blood Gas Liter Flow 8.00 POC Glucose 116 H 70-106 mg/dl Assessment/Plan Plan Acute on chronic hypercapnic respiratory failure Noninvasive ventilation BiPAP COPD Status post lumbar spine fusion Patient seen and examined Labs and imaging studies reviewed Serial ABGs reveal decompensated respiratory acidosis. Recommendations/management plan BiPAP p.r.n. for increased work of breathing Albuterol Atrovent bronchodilators for wheezing Supplemental O2 Incentive spirometry/pain control advance diet as tolerated Diurese and monitor renal function Replace electrolytes GI prophylaxis/DVT prophylaxis Family at the bedside updated Patient's code Critical care time 35 minutes Plan discussed with: Patient SARAH ALBERTO MD December 22, 2024 12:31
--- NOTE | 2024-12-22 12:31 | DVHPN2 ---
Progress Note - Dictate Date Seen: December 22, 2024 Has the PT tested + for MRSA If YES, has PT been informed?: No Medical Necessity Reason Pt with a Central, PICC or Fol: No vital signs Vital Sign Date Time Temp Pulse Resp B/P (MAP) Pulse Ox O2 Delivery O2 Flow Rate FiO2 12/22/24 12:15 79 21 90/38 (55) 100 108/44 (65) 12/22/24 12:00 98.0 98.0 12/22/24 11:51 Nasal BiPAP Mask 35 12/22/24 10:00 6 Total Intake and Output 12/21/24 12/21/24 12/22/24 15:00 23:00 07:00 Intake Total 110 ml 150 ml 700 ml Output Total 700 ml 1350 ml Balance 110 ml -550 ml -650 ml medications Current Medications Medications Dose Ordered Sig/Mejia Route Start Time Stop Time Status Last Admin Dose Admin Dextrose/Sodium Chloride 1,000 ml @ 100 mls/hr Q10H IV 12/21/24 15:45 12/22/24 08:47 100 MLS/HR Ondansetron HCl 4 mg Q4HP PRN IV 12/21/24 15:45 Acetaminophen 650 mg Q6HP PRN PO 12/21/24 15:45 Acetaminophen/ Hydrocodone Bitart 1 tab Q6HP PRN PO 12/21/24 15:45 12/22/24 10:43 1 TAB Morphine Sulfate 1 mg Q4HP PRN IV 12/21/24 15:45 12/22/24 00:37 1 MG Cyclobenzaprine HCl 10 mg TID PO 12/21/24 22:00 12/22/24 06:09 10 MG Docusate Sodium 100 mg BID PO 12/21/24 22:00 12/22/24 10:42 100 MG Cefazolin Sodium 50 ml @ 100 mls/hr Q8HR IV 12/21/24 22:00 12/23/24 14:29 12/22/24 05:31 100 MLS/HR Nitroglycerin 0.4 mg Q5MINP PRN SL 12/21/24 15:45 Morphine Sulfate 2 mg Q30M PRN IV 12/21/24 15:45 Hydromorphone HCl 0.25 mg [id number] PRN IV 12/21/24 19:30 12/22/24 01:41 0.25 MG Ipratropium Mason 0.5 mg Q6HR NEB 12/22/24 00:00 12/22/24 11:51 0.5 MG Famotidine 20 mg Q12HR IV 12/22/24 10:00 12/22/24 10:42 20 MG Albuterol 2.5 mg Q6HR NEB 12/22/24 18:00 UNV laboratory and microbiology Laboratory Tests 12/22/24 04:39 12/22/24 01:43 Test 12/22/24 04:39 Range/Units Serum Glucose 206 H 74-106 mg/dL Assessment/Plan Acute on chronic hypercapnic respiratory failure Noninvasive ventilation BiPAP COPD Status post lumbar spine fusion Patient seen and examined Labs and imaging studies reviewed Serial ABGs reveal decompensated respiratory acidosis. Recommendations/management plan BiPAP p.r.n. for increased work of breathing Albuterol Atrovent bronchodilators for wheezing Supplemental O2 Incentive spirometry/pain control advance diet as tolerated Diurese and monitor renal function Replace electrolytes GI prophylaxis/DVT prophylaxis Family at the bedside updated Patient's code Critical care time 35 minutes Plan discussed with: Patient, Other (rn) SARAH ALBERTO MD December 22, 2024 12:31
[2024-12-22 14:32] LABS: Base Excess -0.5 mmol/L (-2.0-3.0)
[2024-12-22] MEDS: CARBIDOPA W LEVODOPA 25/100mg TABLET PO SCH (17:15)
[2024-12-22] MEDS: ALBUTEROL SULF 2.5 MG/0.5ML(0.5%) NEB SOLN NEB SCH (18:10)
[2024-12-22] MEDS: PRIMIDONE 50 MG TAB PO SCH (22:22)
[2024-12-23] VITALS (34 sets, daily range): BP systolic 87–147; BP diastolic 34–53; PULSE 20–99; RESP 14–89; TEMP 97.9–99.2; O2SAT 91–100
[2024-12-23 05:57] LABS: Basophils # (auto) 0 10 ^3/uL (0-0.2); Eosinophils # (auto) 0 10 ^3/uL (0-0.8); White Blood Cell 14.8 10^3/uL (4.4-10.8)
[2024-12-23 06:00] LABS: Basophils % (auto) 0.1 % (0.0-2.0); Hematocrit 27.4 % (36.0-46.0); Hemoglobin 8.5 g/dL (12.2-16.2); Lymphocytes # (auto) 1.5 10 ^3/uL (0.4-5.4); Lymphocytes % (auto) 10.1 % (10.0-50.0); Mean Corpuscular Hemoglobin 25.4 pg (28.0-32.0); Mean Corpuscular Hgb Conc. 31.2 g/dL (32.0-36.0); Mean Corpuscular Volume 81.4 fL (80.0-100.0); Monocytes # (auto) 1.8 10 ^3/uL (0-1.3); Monocytes % (auto) 11.9 % (0.0-12.0); Neutrophils # (auto) 11.5 10 ^3/uL (1.6-8.6); Neutrophils % (auto) 77.9 % (37.0-80.0); Nucleated Red Blood Cells % 0.1 %; Platelet Count (auto) 252 10^3/uL (140-450); Red Blood Cells 3.36 10^6/uL (4.0-5.20); Red Cell Distribution Width 14.9 % (11.8-14.3)
[2024-12-23 06:05] LABS: Chloride 102 mmol/L (98-107); Potassium 3.6 mmol/L (3.5-5.1); Sodium 141 mmol/L (136-145)
[2024-12-23 06:06] LABS: Anion Gap 8 (5-15)
[2024-12-23 06:11] LABS: BUN/Creatinine Ratio 12.5 (10.0-20.0); Blood Urea Nitrogen 12 mg/dL (9-23)
[2024-12-23 06:31] LABS: Calcium 8.2 mg/dL (8.7-10.4); Carbon Dioxide 31 mmol/L (20-31); Glucose 133 mg/dL (74-106)
--- NOTE | 2024-12-23 07:15 | DVHPN2 ---
Progress Note - Surgical Date Seen: December 23, 2024 Post op day Post op day: 2 Subjective Patient reports: No new complaints, Feels better Review of Systems: HEENT:Normal, CVS:Normal, RESPIRATORY:Normal, GI:Normal, :Normal, MSK:Normal, NEURO:Normal Objective Vital signs Vital Sign Date Time Temp Pulse Resp B/P (MAP) Pulse Ox O2 Delivery O2 Flow Rate FiO2 12/23/24 05:45 97.9 90 18 119/50 (73) 91 97.9 12/23/24 04:00 Nasal Cannula* 2 28 Total Intake and Output 12/22/24 12/22/24 12/23/24 15:00 23:00 07:00 Intake Total 925 ml 1000 ml 450 ml Output Total 2535 ml 1585 ml Balance 925 ml -1535 ml -1135 ml Medications Current Medications Medications Dose Ordered Sig/Mejia Route Start Time Stop Time Status Last Admin Dose Admin Ondansetron HCl 4 mg Q4HP PRN IV 12/21/24 15:45 Acetaminophen 650 mg Q6HP PRN PO 12/21/24 15:45 Acetaminophen/ Hydrocodone Bitart 1 tab Q6HP PRN PO 12/21/24 15:45 12/23/24 06:07 1 TAB Morphine Sulfate 1 mg Q4HP PRN IV 12/21/24 15:45 12/22/24 19:16 1 MG Cyclobenzaprine HCl 10 mg TID PO 12/21/24 22:00 12/23/24 05:37 10 MG Docusate Sodium 100 mg BID PO 12/21/24 22:00 12/22/24 22:10 100 MG Cefazolin Sodium 50 ml @ 100 mls/hr Q8HR IV 12/21/24 22:00 12/23/24 14:29 12/23/24 05:54 100 MLS/HR Nitroglycerin 0.4 mg Q5MINP PRN SL 12/21/24 15:45 Morphine Sulfate 2 mg Q30M PRN IV 12/21/24 15:45 Hydromorphone HCl 0.25 mg [id number] PRN IV 12/21/24 19:30 12/22/24 01:41 0.25 MG Ipratropium [place] 0.5 mg Q6HR NEB 12/22/24 00:00 12/23/24 06:30 0.5 MG Famotidine 20 mg Q12HR IV 12/22/24 10:00 12/22/24 22:09 20 MG Albuterol 2.5 mg Q6HR NEB 12/22/24 18:00 12/23/24 06:31 2.5 MG Primidone 50 mg BID PO 12/22/24 22:00 12/22/24 22:22 50 MG Carbidopa/Levodopa 1 tab QID PO 12/22/24 18:00 12/23/24 05:37 1 TAB Laboratory Laboratory Tests 12/23/24 05:05 Test 12/23/24 05:05 Range/Units Serum Glucose 133 H 74-106 mg/dL Microbiology Date/Time Source Procedure Growth Status 12/21/24 22:14 Nose MRSA Screen - Final Complete Examination: GENERAL:Normal, HEENT:Normal, NECK:Normal, LUNGS:Normal, CVS:Normal, ABDOMEN:Normal, MSK:Normal, SKIN:Normal (sandee intact and drains intact), NEURO:Normal (improving preoperative symptome), :Normal (dc cole) Problem List/Assessment/Plan Problems: (1) Postoperative pain after spinal surgery (2) Muscle spasm of back Assessment and Plan Patient has had spine surgery rounds today No focal neurologic declined reported overnight Drain 1 75 ml of Sanguinous discharge at deep Hemovac drain and drained 50 ml sanguineous output at superficial Hemovac drain, will keep drain 1 in dc'd drain 2 today Patient has been Hemodynamically stable Encouraged patient to sit up higher in bed, sit a site of bed for meals and encouraged patient to work with physical therapy Patient currently awake, alert no apparent distress noted Patient is handling secretions, respirations are equal and unlabored, voice is strong Skin is pink warm and dry No complaints of abdominal pain no distention noted Patient passing gas Patient tolerating meal Sandee dressing is functioning and seal is intact, power source is operational Drain output has been recorded, drains are intact x2 we will keep drain #1 in and re-evaluate tomorrow morning Patient verbalized that she understands she is having postoperative pain and the pain that she had prior to surgery is resolved slightly Patient is progressing well -Disposition: -Pending -Discharge RX: Pending -Follow up appointment: with Dr Jessica on were scheduled follow up appointment date and time [phone] [facility] [address] [place] [id number] -Pain: - IV pain meds post op day 1, with PO supplementation, goal is to progress weaning off IV medications and control pain with PO only. morphine 1mg q 4 hours (PAIN 7-10) - P.O. analgesics:Tylenol 650MG (PAIN 1-3) [place] 10/325 mg (PAIN 4-6) - Muscle relaxers scheduled administration. This is a beneficial medications for the incisional pain as it is mostly related to muscle spasms. Flexeril 10 mg TID - Cepacol throat lozenges as needed for sore throat -Antibiotics Operative recommendations: -Postoperative dose:-Post operative antibiotics cefazolin 1 g IV piggyback every 8 hours x 48 hours total of 6 doses -DVT PPX: -Hold all chemical DVT/ blood thinners for 14 days postoperatively -use mechanical DVT PPX such as SCD's, ambulation -Activity: -Pending PT evaluation and patients progression -Sit at side of bed for meals -Goal: Ambulate independently and safely (may use assistive devices if needed) -Medical Therapy goals: -Afebrile- Patient may develop a expected post operative fever by day 2-3, this may not be accompanied with a elevation in WBC. if fever develops: Acetaminophen for fever. Albuterol nebulizer Tx every 12 hours for 24 hours to facilitate adequate lung expansion and prevent development of atelectasis. -Euglycemic: bloods sugars under 130mmol/L for optimal healing -Normotensive: Avoid events of hypertension. This helps to keep post operative healing intact and avoids destabilization of beneficial hemostatic coagulation. -Lumbar: -If patient is comfortable encouraged the patient to lay on their side to facilitate wound healing -Drains: -Hemovac drains: These will be to full compression unless otherwise ordered. Please record and document output AND characteristic of fluid present independently EVERY 6 hours more often as needed. if there in no output indicate this by documenting 0ml. If output is greater than 100 ml in one hour of julio blood call provider. These drains will be removed once the drainage is at a acceptable level (generally less than 100ml in 24 hours) -Sandee dressing: This will stay in place and will be removed at the patients follow up visit. Nursing is to assess the seal and power source. The seal should be intact and the power source should have a green flashing light indicating it is functioning well. Batteries can last up to 14 days. If a leak develops the dressing edges can be reinforced with a Tegaderm dressing to reestablish intact seal. The Sandee dressing is NOT a wound vac. This does not get changed, it does not need home health management. -Record output independently, drain 1. Is a deep drain and drain 2. Is a superficial drain. Wound drainage is described by type, color, amount, and odor. Drainage can be 1 Serous: Clear and thin, may be present in healing healthy wound. 2 Serosanguineous containing blood may also be present and healthy healing wound 3. Sanguinous primarily blood 4. Purulent this is thick, white, and pus like. It may be indicated to give of a infection and should constitute a call to the provider immediately with the plan that the sample should be cultured. -Cole: discontinued in OR -Dressings Take care not to disrupt the SANDEE dressing seal. If there is a break in the seal it can be trouble shot with a Tegaderm dressing. -Dressing to Hemovac drains may be changed once the drains have been removed by the provider. -Bowel management: -Colace 100mg bid -Diet: -Clear liquid diet and advance as patient tolerates within dietary limitations ( example: diabetic, Cardiac) -Incentive Spirometer: -10 x hour while awake, RN please educate and observe repeat demonstration, have IS at bedside POD #1 -X-rays: - none indicated at this time -Consults: -Physical Therapy evaluation, treatment recommendations, and discharge recommendations Call with questions Silva Lopez ACNP- Orthopaedic Spine Surgery nurse practitioner For Dr Wolf Jessica Patient was examined, chart reviewed, labs evaluated, and diagnostic studies and findings analyzed. Case was discussed with Dr. Vinicius Jessica who formulated the plan of care. This medical document was created using an electronic medical record system with [employer] dictation system. Although this document has been carefully reviewed, there might still be some phonetic and typographical errors. These areas are purely typographical due to imperfections of the software programs, and do not reflect any compromise in the patient's medical care. Date My Orders My Orders Orders - FLORINDA LOPEZ NP Procedure Category Date Status Time Transfer Orders XFER 12/22/24 Transmitted 16:22 Plan discussed with Plan discussed with: Patient, Other (Dairy and RN extension [phone]) Visit Coding Surgery Date of Service if different f: December 23, 2024 Billing Provider: FLORINDA LOPEZ NP Surgery Visit Codes: NOT BILLABLE FLORINDA LOPEZ NP December 23, 2024 07:15
--- NOTE | 2024-12-23 14:11 | DVHPN2 ---
Subjective Patient's daughter is requesting portable oxygen for home. Patient denies any complaints. Reviewed: Care Plan Changes from previous H/P or p: No Changes Objective Vitals Vital Signs Date Time Temp Pulse Resp B/P (MAP) Pulse Ox O2 Delivery O2 Flow Rate FiO2 12/23/24 13:00 98.1 91 18 135/50 (78) 91 98.1 12/23/24 11:40 Nasal Cannula* 1 24 Intake/Output Intake and Output 12/23/24 06:59 Intake Total 2475 ml Output Total 4120 ml Balance -1645 ml Intake Oral 850 ml IV Total 1625 ml Output Urine Total 3900 ml Drainage Total 220 ml Exam HEENT pupils are reactive Neck is supple CV is S1-S2 regular rate and rhythm Respiratory diminished breath sounds bilateral lung bases GI positive bowel sound Extremity no edema SUPERINTENDENT METER TESTS no motor deficit Medications Current Medications Medications Dose Ordered Sig/Mejia Route Start Time Stop Time Status Last Admin Dose Admin Ondansetron HCl 4 mg Q4HP PRN IV 12/21/24 15:45 Acetaminophen 650 mg Q6HP PRN PO 12/21/24 15:45 Acetaminophen/ Hydrocodone Bitart 1 tab Q6HP PRN PO 12/21/24 15:45 12/23/24 09:51 1 TAB Morphine Sulfate 1 mg Q4HP PRN IV 12/21/24 15:45 12/22/24 19:16 1 MG Cyclobenzaprine HCl 10 mg TID PO 12/21/24 22:00 12/23/24 12:50 10 MG Docusate Sodium 100 mg BID PO 12/21/24 22:00 12/23/24 09:50 100 MG Cefazolin Sodium 50 ml @ 100 mls/hr Q8HR IV 12/21/24 22:00 12/23/24 14:29 12/23/24 12:50 100 MLS/HR Nitroglycerin 0.4 mg Q5MINP PRN SL 12/21/24 15:45 Morphine Sulfate 2 mg Q30M PRN IV 12/21/24 15:45 Hydromorphone HCl 0.25 mg [id number] PRN IV 12/21/24 19:30 12/22/24 01:41 0.25 MG Ipratropium [place] 0.5 mg Q6HR NEB 12/22/24 00:00 12/23/24 11:40 0.5 MG Famotidine 20 mg Q12HR IV 12/22/24 10:00 12/23/24 09:51 20 MG Albuterol 2.5 mg Q6HR NEB 12/22/24 18:00 12/23/24 11:40 2.5 MG Primidone 50 mg BID PO 12/22/24 22:00 12/23/24 09:50 50 MG Carbidopa/Levodopa 1 tab QID PO 12/22/24 18:00 12/23/24 12:11 1 TAB Laboratory Results Laboratory Tests 12/23/24 05:05 Chemistry Test 12/23/24 05:05 Calcium Level 8.2 mg/dL (8.7-10.4) L Urinalysis Test 12/22/24 04:20 Urine Color Light-yellow (Yellow) Urine Clarity Clear (Clear) Urine pH 7.0 (5.0-9.0) Urine Specific [place] 1.013 (1.001-1.035) Urine Protein Negative (Negative) Urine Ketones Negative (Negative) Urine Blood Negative /uL (Negative) Urine Nitrite Negative (Negative) Urine Bilirubin Negative (Negative) Urine Urobilinogen Normal mg/dL (Negative) Urine Leukocyte Esterase Negative /uL (Negative) Urine RBC 3 /hpf (0 - 4) Urine Microscopic WBC 2 /HPF (0-5) Urine Squamous Epithelial Cells None seen /hpf (<5) Urine Bacteria None seen /hpf (None Seen) Urine Glucose Normal mg/dL (Normal) Blood Gas Results Test 12/22/24 14:20 Arterial Blood pH 7.411 (7.350-7.450) FiO2 % 28.0 Microbiology Microbiology Date/Time Source Procedure Growth Status 12/21/24 22:14 Nose MRSA Screen - Final Complete Assessment/Plan Assessment/Plan 74-year-old female with a known history of chronic respiratory failure on home O2 at 2 L, COPD, hypothyroidism, Parkinson's disease presented to the hospital for elective surgery. Patient is currently off of BiPAP. 1. Acute hypoxic respiratory failure currently off of BiPAP, on baseline at 2 L by continuous nasal cannula 2. Lumbar spine stenosis status post L4-5 S1 surgery postop day one 3. Parkinson's disease 4. Chronic respiratory failure on home O2 5. Hypertension 6. Diabetes mellitus type 2 7. GERD 8. Morbid obesity class I -continue O2 supplementation, med nebs, follow up spine surgery consultation instructional services librarian consultation for portable home oxygen arrangement. Plan discussed with: Patient, Daughter My Orders Orders - MODESTO DELANEY MD Procedure Category Date Status Time Abg W/ Co-Ox RT 12/22/24 Logged 14:19 Primidone Tablet PHA 12/22/24 In Process (Mysoline Tablet) 22:00 Carbidopa W Levodopa PHA 12/22/24 In Process 25/100mg (Sinemet 2 18:00 * Network Architect CONS 12/23/24 Verified Consult Date of Service: December 23, 2024 Billing Provider: MODESTO DELANEY MD Common Visit Codes: NOT BILLABLE MODESTO DELANEY MD December 23, 2024 14:11
[2024-12-23] MEDS: LORazepam 2MG/ML-1ML VIAL IV ONE (16:10)
[2024-12-23] MEDS ORDERED: OLAN1TAB19 PO (19:54)
--- NOTE | 2024-12-23 20:32 | DVHPN2 ---
Progress Note - Dictate Date Seen: December 23, 2024 Has the PT tested + for MRSA If YES, has PT been informed?: No Medical Necessity Reason Pt with a Central, PICC or Fol: No vital signs Vital Sign Date Time Temp Pulse Resp B/P (MAP) Pulse Ox O2 Delivery O2 Flow Rate FiO2 12/23/24 18:59 95 Nasal Cannula* 2 28 12/23/24 18:39 90 18 12/23/24 17:00 98.2 147/52 (83) 98.2 Total Intake and Output 12/22/24 12/22/24 12/23/24 15:00 23:00 07:00 Intake Total 925 ml 1000 ml 450 ml Output Total 2535 ml 1585 ml Balance 925 ml -1535 ml -1135 ml medications Current Medications Medications Dose Ordered Sig/Mejia Route Start Time Stop Time Status Last Admin Dose Admin Ondansetron HCl 4 mg Q4HP PRN IV 12/21/24 15:45 Acetaminophen 650 mg Q6HP PRN PO 12/21/24 15:45 Acetaminophen/ Hydrocodone Bitart 1 tab Q6HP PRN PO 12/21/24 15:45 12/23/24 18:31 1 TAB Morphine Sulfate 1 mg Q4HP PRN IV 12/21/24 15:45 12/22/24 19:16 1 MG Cyclobenzaprine HCl 10 mg TID PO 12/21/24 22:00 12/23/24 12:50 10 MG Docusate Sodium 100 mg BID PO 12/21/24 22:00 12/23/24 09:50 100 MG Nitroglycerin 0.4 mg Q5MINP PRN SL 12/21/24 15:45 Morphine Sulfate 2 mg Q30M PRN IV 12/21/24 15:45 Hydromorphone HCl 0.25 mg [id number] PRN IV 12/21/24 19:30 12/22/24 01:41 0.25 MG Ipratropium [place] 0.5 mg Q6HR NEB 12/22/24 00:00 12/23/24 18:30 0.5 MG Famotidine 20 mg Q12HR IV 12/22/24 10:00 12/23/24 09:51 20 MG Albuterol 2.5 mg Q6HR NEB 12/22/24 18:00 12/23/24 18:30 2.5 MG Primidone 50 mg BID PO 12/22/24 22:00 12/23/24 09:50 50 MG Carbidopa/Levodopa 1 tab QID PO 12/22/24 18:00 12/23/24 18:00 1 TAB laboratory and microbiology Laboratory Tests 12/23/24 05:05 Test 12/23/24 05:05 Range/Units Serum Glucose 133 H 74-106 mg/dL Assessment/Plan Acute on chronic hypercapnic respiratory failure Noninvasive ventilation BiPAP COPD Status post lumbar spine fusion Patient seen and examined Events Low oxygen requirements On 2 liters nasal cannula No acute events S/p lumbar fusion Labs and imaging studies reviewed Recommendations/management plan BiPAP p.r.n. for increased work of breathing Albuterol Atrovent bronchodilators for wheezing Supplemental O2 Incentive spirometry/pain control advance diet as tolerated Diurese and monitor renal function Replace electrolytes GI prophylaxis/DVT prophylaxis Plan discussed with: Patient SARAH ALBERTO MD December 23, 2024 20:32
[2024-12-24] VITALS (12 sets, daily range): BP systolic 122–138; BP diastolic 35–66; PULSE 82–102; RESP 17–22; TEMP 97.8–98.8; O2SAT 94–99
[2024-12-24 06:07] LABS: Hemoglobin 8.8 g/dL (12.2-16.2); Red Cell Distribution Width 15.2 % (11.8-14.3)
[2024-12-24 06:11] LABS: Hematocrit 28.1 % (36.0-46.0); Mean Corpuscular Hgb Conc. 31.4 g/dL (32.0-36.0); Platelet Count (auto) 248 10^3/uL (140-450); Red Blood Cells 3.39 10^6/uL (4.0-5.20); White Blood Cell 9.5 10^3/uL (4.4-10.8)
[2024-12-24 06:16] LABS: Chloride 102 mmol/L (98-107); Potassium 3.8 mmol/L (3.5-5.1); Sodium 139 mmol/L (136-145)
[2024-12-24 06:17] LABS: Anion Gap 7 (5-15); Calcium 8.8 mg/dL (8.7-10.4); Carbon Dioxide 30 mmol/L (20-31)
[2024-12-24 06:22] LABS: BUN/Creatinine Ratio 12.4 (10.0-20.0); Blood Urea Nitrogen 11 mg/dL (9-23)
[2024-12-24 06:25] LABS: Glucose 136 mg/dL (74-106)
[2024-12-24 07:20] LABS: Band Neutrophils % (manual) 0; Basophils % (manual) 0 (0.0-2.0); Blast Cells 0; Metamyelocytes % 0; Myelocytes % 0; Promyelocytes % 0; Reactive Lymphocytes 0
[2024-12-24 11:39] LABS: Eosinophils % (manual) 1 (0-7); Lymphocytes % (manual) 16 (10.0-50.0); Monocytes % (manual) 12 (0-12)
[2024-12-24 11:40] LABS: Platelet Estimate Adequate
--- NOTE | 2024-12-24 13:03 | DVHPN2 ---
Progress Note - Surgical Date Seen: December 24, 2024 Post op day Post op day: 3 Subjective Patient reports: No new complaints, Feels better Review of Systems: HEENT:Normal, CVS:Normal, RESPIRATORY:Normal, GI:Normal, :Normal, MSK:Normal, NEURO:Normal Objective Vital signs Vital Sign Date Time Temp Pulse Resp B/P (MAP) Pulse Ox O2 Delivery O2 Flow Rate FiO2 12/24/24 12:24 96 17 99 12/24/24 12:18 Nasal Cannula* 2 28 12/24/24 09:31 129/35 12/24/24 08:46 98.6 98.6 Total Intake and Output 12/23/24 12/23/24 12/24/24 15:00 23:00 07:00 Intake Total 50 ml 500 ml 300 ml Output Total 950 ml 700 ml Balance 50 ml -450 ml -400 ml Medications Current Medications Medications Dose Ordered Sig/Mejia Route Start Time Stop Time Status Last Admin Dose Admin Ondansetron HCl 4 mg Q4HP PRN IV 12/21/24 15:45 Acetaminophen 650 mg Q6HP PRN PO 12/21/24 15:45 Acetaminophen/ Hydrocodone Bitart 1 tab Q6HP PRN PO 12/21/24 15:45 12/24/24 05:14 1 TAB Morphine Sulfate 1 mg Q4HP PRN IV 12/21/24 15:45 12/24/24 09:31 1 MG Cyclobenzaprine HCl 10 mg TID PO 12/21/24 22:00 12/24/24 05:14 10 MG Docusate Sodium 100 mg BID PO 12/21/24 22:00 12/24/24 09:30 100 MG Nitroglycerin 0.4 mg Q5MINP PRN SL 12/21/24 15:45 Morphine Sulfate 2 mg Q30M PRN IV 12/21/24 15:45 Hydromorphone HCl 0.25 mg [id number] PRN IV 12/21/24 19:30 12/22/24 01:41 0.25 MG Ipratropium [place] 0.5 mg Q6HR NEB 12/22/24 00:00 12/24/24 12:18 0.5 MG Famotidine 20 mg Q12HR IV 12/22/24 10:00 12/24/24 09:30 20 MG Albuterol 2.5 mg Q6HR NEB 12/22/24 18:00 12/24/24 12:18 2.5 MG Primidone 50 mg BID PO 12/22/24 22:00 12/24/24 09:30 50 MG Carbidopa/Levodopa 1 tab QID PO 12/22/24 18:00 12/24/24 12:09 1 TAB Laboratory Laboratory Tests 12/24/24 05:30 Test 12/24/24 05:30 Range/Units Serum Glucose 136 H 74-106 mg/dL Microbiology Date/Time Source Procedure Growth Status 12/21/24 22:14 Nose MRSA Screen - Final Complete Examination: GENERAL:Normal, HEENT:Normal, NECK:Normal, LUNGS:Normal, CVS:Normal, ABDOMEN:Normal, MSK:Normal, SKIN:Normal (Sandee dressing intact, drain 1. With 20 mL out at last check with a total of 65 for the past 24 hours we will be discontinued today), NEURO:Normal (Patient verbalizing improvement in preoperative symptoms), :Normal (K[place]patrick will be discontinued today) Problem List/Assessment/Plan Problems: (1) Muscle spasm of back (2) Postoperative pain after spinal surgery Assessment and Plan Patient SEEN ON spine surgery rounds today No focal neurologic declined reported overnight Drain 1 20 ml of Sanguinous DRAINAGE drain discontinued Patient has been Hemodynamically stable Encouraged patient to sit up higher in bed, sit a site of bed for meals and encouraged patient to work with physical therapy Kirkpatrick catheter in place new order placed to remove it Patient cleared to discharge from a spine surgery perspective Patient currently awake, alert no apparent distress noted Patient is handling secretions, respirations are equal and unlabored, voice is strong Skin is pink warm and dry No complaints of abdominal pain no distention noted Patient passing gas Patient tolerating meal Sandee dressing is functioning and seal is intact, power source is operational Drain output has been recorded, drains are intact x1 we will DC drain #1 Patient verbalized that she understands she is having postoperative pain and the pain that she had prior to surgery is resolved slightly Patient is progressing wel -Follow up appointment: with Dr Jessica on were scheduled follow up appointment date and time [phone] [facility] [address] [place] [place] [phone] -Pain: - IV pain meds post op day 1, with PO supplementation, goal is to progress weaning off IV medications and control pain with PO only. morphine 1mg q 4 hours (PAIN 7-10) - P.O. analgesics:Tylenol 650MG (PAIN 1-3) [place] 10/325 mg (PAIN 4-6) - Muscle relaxers scheduled administration. This is a beneficial medications for the incisional pain as it is mostly related to muscle spasms. Flexeril 10 mg TID - Cepacol throat lozenges as needed for sore throat -Antibiotics Operative recommendations: -Postoperative dose:-Post operative antibiotics cefazolin 1 g IV piggyback every 8 hours x 48 hours total of 6 doses -DVT PPX: -Hold all chemical DVT/ blood thinners for 14 days postoperatively -use mechanical DVT PPX such as SCD's, ambulation -Activity: -Pending PT evaluation and patients progression -Sit at side of bed for meals -Goal: Ambulate independently and safely (may use assistive devices if needed) -Medical Therapy goals: -Afebrile- Patient may develop a expected post operative fever by day 2-3, this may not be accompanied with a elevation in WBC. if fever develops: Acetaminophen for fever. Albuterol nebulizer Tx every 12 hours for 24 hours to facilitate adequate lung expansion and prevent development of atelectasis. -Euglycemic: bloods sugars under 130mmol/L for optimal healing -Normotensive: Avoid events of hypertension. This helps to keep post operative healing intact and avoids destabilization of beneficial hemostatic coagulation. -Lumbar: -If patient is comfortable encouraged the patient to lay on their side to facilitate wound healing -Dressings Take care not to disrupt the SANDEE dressing seal. If there is a break in the seal it can be trouble shot with a Tegaderm dressing. -Dressing to Hemovac drains may be changed once the drains have been removed by the provider. -Bowel management: -Colace 100mg bid -Diet: -tolerating diet -Incentive Spirometer: -10 x hour while awake, RN please educate and observe repeat demonstration, have IS at bedside POD #1 -X-rays: - none indicated at this time -Consults: -Physical Therapy evaluation, treatment recommendations, and discharge recommendations Call with questions Silva Lopez ACNP- Orthopaedic Spine Surgery nurse practitioner For Dr Wolf Jessica Patient was examined, chart reviewed, labs evaluated, and diagnostic studies and findings analyzed. Case was discussed with Dr. Vinicius Jessica who formulated the plan of care. This medical document was created using an electronic medical record system with [employer] dictation system. Although this document has been carefully reviewed, there might still be some phonetic and typographical errors. These areas are purely typographical due to imperfections of the software programs, and do not reflect any compromise in the patient's medical care. Date Plan discussed with Plan discussed with: Patient, Other (BRISA RN x [phone]) Visit Coding Surgery Date of Service if different f: December 24, 2024 Billing Provider: FLORINDA LOPEZ NP Surgery Visit Codes: NOT BILLABLE FLORINDA LOPEZ NP December 24, 2024 13:03
[2024-12-24] MEDS: GABAPENTIN 300 MG CAP PO SCH (13:26)
--- NOTE | 2024-12-24 14:18 | DVHPN2 ---
Progress Note - Dictate Date Seen: December 24, 2024 Has the PT tested + for MRSA If YES, has PT been informed?: No Medical Necessity Reason Pt with a Central, PICC or Fol: No vital signs Vital Sign Date Time Temp Pulse Resp B/P (MAP) Pulse Ox O2 Delivery O2 Flow Rate FiO2 12/24/24 13:00 97.8 92 20 138/39 (72) 97 97.8 12/24/24 12:18 Nasal Cannula* 2 28 Total Intake and Output 12/23/24 12/23/24 12/24/24 15:00 23:00 07:00 Intake Total 50 ml 500 ml 300 ml Output Total 950 ml 700 ml Balance 50 ml -450 ml -400 ml medications Current Medications Medications Dose Ordered Sig/Mejia Route Start Time Stop Time Status Last Admin Dose Admin Ondansetron HCl 4 mg Q4HP PRN IV 12/21/24 15:45 Acetaminophen 650 mg Q6HP PRN PO 12/21/24 15:45 Acetaminophen/ Hydrocodone Bitart 1 tab Q6HP PRN PO 12/21/24 15:45 12/24/24 05:14 1 TAB Morphine Sulfate 1 mg Q4HP PRN IV 12/21/24 15:45 12/24/24 09:31 1 MG Cyclobenzaprine HCl 10 mg TID PO 12/21/24 22:00 12/24/24 13:26 10 MG Docusate Sodium 100 mg BID PO 12/21/24 22:00 12/24/24 09:30 100 MG Nitroglycerin 0.4 mg Q5MINP PRN SL 12/21/24 15:45 Morphine Sulfate 2 mg Q30M PRN IV 12/21/24 15:45 Hydromorphone HCl 0.25 mg [id number] PRN IV 12/21/24 19:30 12/22/24 01:41 0.25 MG Ipratropium [place] 0.5 mg Q6HR NEB 12/22/24 00:00 12/24/24 12:18 0.5 MG Famotidine 20 mg Q12HR IV 12/22/24 10:00 12/24/24 09:30 20 MG Albuterol 2.5 mg Q6HR NEB 12/22/24 18:00 12/24/24 12:18 2.5 MG Primidone 50 mg BID PO 12/22/24 22:00 12/24/24 09:30 50 MG Carbidopa/Levodopa 1 tab QID PO 12/22/24 18:00 12/24/24 12:09 1 TAB Donepezil HCl 10 mg HS PO 12/24/24 22:00 Gabapentin 300 mg BID PO 12/24/24 13:15 12/24/24 13:26 300 MG laboratory and microbiology Laboratory Tests 12/24/24 05:30 Test 12/24/24 05:30 Range/Units Serum Glucose 136 H 74-106 mg/dL Assessment/Plan Impression Acute on chronic hypercapnic respiratory failure Noninvasive ventilation BiPAP COPD Status post lumbar spine fusion Patient seen and examined Events Low oxygen requirements On 2 liters nasal cannula No distress S/p lumbar fusion Labs and imaging studies reviewed Recommendations/management plan BiPAP p.r.n. Albuterol Atrovent bronchodilators for wheezing Supplemental O2 Incentive spirometry/pain control advance diet as tolerated Diurese and monitor renal function Pain control Avoid oversedation Replace electrolytes GI prophylaxis/DVT prophylaxis Plan discussed with: Patient SARAH ALBERTO MD December 24, 2024 14:18
--- NOTE | 2024-12-24 15:26 | DVHDS2 ---
Discharge Summary Date of Admission December 21, 2024 at 15:36 Date of Discharge: December 24, 2024 Labs/Diagnostic Data: Laboratory Results Test 12/24/24 05:30 12/23/24 05:05 12/22/24 14:20 12/22/24 07:46 White Blood Count 9.5 10^3/uL (4.4-10.8) Red Blood Count 3.39 10^6/uL (4.0-5.20) Hemoglobin 8.8 g/dL (12.2-16.2) Hematocrit 28.1 % (36.0-46.0) Mean Corpuscular Volume 83.0 fL (80.0-100.0) Mean Corpuscular Hemoglobin 26.0 pg (28.0-32.0) Mean Corpuscular Hemoglobin Concent 31.4 g/dL (32.0-36.0) Red Cell Distribution Width 15.2 % (11.8-14.3) Platelet Count 248 10^3/uL (140-450) Mean Platelet Volume 9.8 fL (6.9-10.8) Neutrophils (%) (Auto) % (37.0-80.0) Lymphocytes (%) (Auto) % (10.0-50.0) Monocytes (%) (Auto) % (0.0-12.0) Basophils (%) (Auto) % (0.0-2.0) Neutrophils # (Auto) 10 ^3/uL (1.6-8.6) Lymphocytes # (Auto) 10 ^3/uL (0.4-5.4) Monocytes # (Auto) 10 ^3/uL (0-1.3) Differential Total Cells Counted 100.0 (100) Neutrophils % (Manual) 71 (37.0-80.0) Band Neutrophils % (Manual) 0 Lymphocytes % (Manual) 16 (10.0-50.0) Monocytes % (Manual) 12 (0-12) Eosinophils % (Manual) 1 (0-7) Basophils % (Manual) 0 (0.0-2.0) Metamyelocytes % (manual) 0 Myelocytes % (Manual) 0 Promyelocytes % (Manual) 0 Blast Cells % (Manual) 0 Reactive Lymphocytes 0 Platelet Estimate Adequate Sodium Level 139 mmol/L (136-145) Potassium Level 3.8 mmol/L (3.5-5.1) Chloride Level 102 mmol/L (98-107) Carbon Dioxide Level 30 mmol/L (20-31) Anion Gap 7 (5-15) Blood Urea Nitrogen 11 mg/dL (9-23) Creatinine 0.89 mg/dL (0.550-1.02) Glomerular Filtration Rate Calc 67 mL/min (>90) BUN/Creatinine Ratio 12.4 (10.0-20.0) Serum Glucose 136 mg/dL (74-106) Calcium Level 8.8 mg/dL (8.7-10.4) Eosinophils (%) (Auto) 0.0 % (0.0-7.0) Eosinophils # (Auto) 0 10 ^3/uL (0-0.8) Basophils # (Auto) 0 10 ^3/uL (0-0.2) Nucleated Red Blood Cells 0.1 % Blood Gas Specimen Type Arterial Blood Gas Sample Site Arterial line Blood Gas Patient Temperature 37.0 Arterial Blood Date Drawn [id number] Arterial Blood pH 7.411 (7.350-7.450) Arterial Blood Partial Pressure CO2 38.6 mmHg (32.0-45.0) Arterial Blood Partial Pressure O2 61.6 mmHg (83.0-108.0) Arterial Blood HCO3 24.0 mmol/L (21.0-28.0) Arterial Blood Oxygen Saturation 91.1 % (94.0-98.0) Arterial Blood Base Excess -0.5 mmol/L (-2.0-3.0) Arterial Blood Oxyhemoglobin 90.3 % (94.0-98.0) Arterial Blood Carboxyhemoglobin 0.3 % (0.5-1.5) Arterial Blood Methemoglobin 0.6 % (0.0-1.5) Natan Test N/a Blood Gas Total Hemoglobin 8.60 g/dL (12.0-16.0) Blood Gas Modality Nasal cannula FiO2 % 28.0 Blood Gas Set Respiration Rate 12.0 Blood Gas EPAP 5 Blood Gas IPAP 16 Test 12/22/24 04:39 12/22/24 04:20 12/21/24 23:58 12/21/24 20:50 Prothrombin Time 11.2 sec (9.3-11.8) Prothrombin Time INR 1.06 (0.9-1.15) Ammonia 44 umol/L (11-32) Thyroid Stimulating Hormone (TSH) 0.13 uIU/mL (0.55-4.78) Urine Color Light-yellow (Yellow) Urine Clarity Clear (Clear) Urine pH 7.0 (5.0-9.0) Urine Specific Needles 1.013 (1.001-1.035) Urine Protein Negative (Negative) Urine Ketones Negative (Negative) Urine Blood Negative /uL (Negative) Urine Nitrite Negative (Negative) Urine Bilirubin Negative (Negative) Urine Urobilinogen Normal mg/dL (Negative) Urine Leukocyte Esterase Negative /uL (Negative) Urine RBC 3 /hpf (0 - 4) Urine Microscopic WBC 2 /HPF (0-5) Urine Squamous Epithelial Cells None seen /hpf (<5) Urine Bacteria None seen /hpf (None Seen) Urine Glucose Normal mg/dL (Normal) Magnesium Level 1.8 mg/dL (1.6-2.6) Blood Gas Critical Value Read Back Yes Blood Gas Notified Whom Do shaan pan Blood Gas Notified Time [id number] Blood Gas Notified By Rt kwesi mata Test 12/21/24 18:10 12/21/24 12:58 Blood Gas Liter Flow 8.00 POC Glucose 116 mg/dl (70-106) Other Laboratory Tests 12/24/24 05:30 Brief Hx & Hospital Course: 74-year-old female with a known history of chronic respiratory failure on home O2 at 2 L, COPD, hypothyroidism, Parkinson's disease presented to the hospital for elective surgery. The patient underwent lumbar spine surgery at L4-L5 S1 level. Postoperatively patient did fairly well. Patient was found to have acute on chronic hypoxic respiratory failure requiring a BiPAP was kept in BHU. Patient was subsequently transferred to clarify floor once she has and baseline O2 supplementation. The patient bag with physical therapy few steps only recommended to go to [facility] facility but the patient and patient's daughter refused. They are requesting home health home safety evaluation and home PT. cath lab manager has been consulted also arranged daughters requested 41 oxygen for home which will be arranged. Spine surgery will send the prescription for pain management. Condition at Discharge: Stable Final Diagnosis/Problems List 74-year-old female with a known history of chronic respiratory failure on home O2 at 2 L, COPD, hypothyroidism, Parkinson's disease presented to the hospital for elective surgery. Patient is currently off of BiPAP. 1. Acute hypoxic respiratory failure currently off of BiPAP, on baseline at 2 L by continuous nasal cannula 2. Lumbar spine stenosis status post L4-5 S1 surgery postop day one 3. Parkinson's disease 4. Chronic respiratory failure on home O2 5. Hypertension 6. Diabetes mellitus type 2 7. GERD 8. Morbid obesity class I Discharge Disposition: Home with Health Services SNF Discharge Will this Physician continue t: No Discharge Instruct/Medications Diet: Cardiac 2g Na,low cholest Activity: See Comment Activity comment: As tolerated Follow Up/Referral: Follow up with the PCP in 1 week Follow up with spine surgery as scheduled. Medications: Resume home medications. Discharge Statement: "Patient was advised to return to the ER or call 911 if any headaches, dizziness, shortness of breath, chest pain, abdominal pain, bleeding, fevers, or worsening of medical condition. Patient was counseled about treatment plan, medications, possible side effects, patientverbalized understanding. All questions were answered to the best of my ability. This discharge took greater then 30 minutes in planning, reviewing documentation, counseling the patient, and discussing with other team members." ASSESSMENT ASSESSMENT Assessment 74-year-old female with a known history of chronic respiratory failure on home O2 at 2 L, COPD, hypothyroidism, Parkinson's disease presented to the hospital for elective surgery. Patient is currently off of BiPAP. 1. Acute hypoxic respiratory failure currently off of BiPAP, on baseline at 2 L by continuous nasal cannula 2. Lumbar spine stenosis status post L4-5 S1 surgery postop day one 3. Parkinson's disease 4. Chronic respiratory failure on home O2 5. Hypertension 6. Diabetes mellitus type 2 7. GERD 8. Morbid obesity class I Date of Service: December 24, 2024 Billing Provider: MODESTO DELANEY MD Common Visit Codes: NOT BILLABLE MODESTO DELANEY MD December 24, 2024 15:25
[2024-12-24] MEDS ORDERED: HYDR-4798 PO ×2 (16:20→17:12)
[2024-12-24] MEDS ORDERED: DOCU-265 PO ×2 (16:20→17:12)
[2024-12-24] MEDS ORDERED: CYCL-611 PO ×2 (16:20→17:12)
[2024-12-24] MEDS ORDERED: DONEPEZIL HYDROCHLORIDE 5 MG TAB PO SCH (22:00)
== END 2024-12-24 18:49 | disposition home health service (06) | DRG 447 ==
LOC: SUR 11:52 → OVERFLOW 15:36 → DOU IN ICU 22:00 → TELE-CENTR 12-23 05:25
PROVIDERS: ADMIT Internal Medicine; ATTEND Internal Medicine
PROC: 0SG3071 Fusion of Lumbosacral Joint with Autologous Tissue Substitute, Posterior Approach, Posterior Column, Open Approach (ICD-10-PCS; 2024-12-21)
PROC: 01NB0ZZ Release Lumbar Nerve, Open Approach (ICD-10-PCS; 2024-12-21)
PROC: 01NR0ZZ Release Sacral Nerve, Open Approach (ICD-10-PCS; 2024-12-21)
PROC: 4A11X4G Monitoring of Peripheral Nervous Electrical Activity, Intraoperative, External Approach (ICD-10-PCS; 2024-12-21)
PROC: 5A09357 Assistance with Respiratory Ventilation, Less than 24 Consecutive Hours, Continuous Positive Airway Pressure (ICD-10-PCS; 2024-12-21)
PROC: 0SG0071 Fusion of Lumbar Vertebral Joint with Autologous Tissue Substitute, Posterior Approach, Posterior Column, Open Approach (ICD-10-PCS; principal; 2024-12-21 14:52)
PROC: 5A09357 Assistance with Respiratory Ventilation, Less than 24 Consecutive Hours, Continuous Positive Airway Pressure (ICD-10-PCS; 2024-12-22)
DX: M48.07 Spinal stenosis, lumbosacral region (principal); J96.21 Acute and chronic respiratory failure with hypoxia; J96.22 Acute and chronic respiratory failure with hypercapnia; E87.29 Other acidosis; M48.062 Spinal stenosis, lumbar region with neurogenic claudication; J44.9 Chronic obstructive pulmonary disease, unspecified; M43.17 Spondylolisthesis, lumbosacral region; M43.16 Spondylolisthesis, lumbar region; E11.9 Type 2 diabetes mellitus without complications; K21.9 Gastro-esophageal reflux disease without esophagitis; E03.9 Hypothyroidism, unspecified; I10 Essential (primary) hypertension; F41.9 Anxiety disorder, unspecified; G89.29 Other chronic pain; K74.60 Unspecified cirrhosis of liver; E66.811 Obesity, class 1; E66.01 Morbid (severe) obesity due to excess calories; F02.80 Dementia in other diseases classified elsewhere, unspecified severity, without behavioral disturbance, psychotic disturbance, mood disturbance, and anxiety; G20.A1 Parkinson's disease without dyskinesia, without mention of fluctuations; Z79.899 Other long term (current) drug therapy; Z90.49 Acquired absence of other specified parts of digestive tract; Z90.710 Acquired absence of both cervix and uterus; Z79.84 Long term (current) use of oral hypoglycemic drugs; Z99.81 Dependence on supplemental oxygen
CPT/HCPCS: 36415; 36600; 71045; 72100; 76000; 80048; 81001; 82140; 82805; 82962; 83735; 84443; 85007; 85025; 85027; 85610; 86850; 86900; 86901; 87081; 94640; 94660; 97110; 97116; 97163; 97530; G0378; J0131; J1100; J1956; J2250; J2405; J2704; J3490